=== PATIENT | male | born 1990 | race Caucasian/White ===

== ENCOUNTER 2016-12-10 13:49 | Emergency (ER) | payer OTHER ==
--- NOTE | 2016-12-10 14:03 | EDPHY ---
H & P Stated Complaint: CP started 2 hours ago when arguing with roomate, dull constant pressure Time Seen by Provider: 12/10/16 14:02 - Personal History Current Tetanus/Diphtheria Vaccine: Yes Current Tetanus Diphtheria and Acellular Pertussis (TDAP): Yes - Medical/Surgical History Hx Asthma: No Hx Chronic Respiratory Disease: No Hx Diabetes: No Hx Cardiac Disease: No Hx Renal Disease: No Hx Cirrhosis: No Hx Alcoholism: No Hx HIV/AIDS: No Hx Splenectomy or Spleen Trauma: No Other PMH: pmh:hypothyroidsim, high chol. anxiety. psh: dental - Social History Smoking Status: Never smoked Constitutional: Initial Vital Signs Temperature (C) 36.5 C 12/10/16 13:53 Heart Rate 96 12/10/16 13:53 Respiratory Rate 16 12/10/16 13:53 Blood Pressure 171/93 H 12/10/16 13:53 O2 Sat (%) 97 12/10/16 13:53 O2 Delivery Mode Room Air Allergies/Adverse Reactions: No Known Allergies Allergy (Unverified 12/10/16 13:56) Home Medications: Medication Instructions Recorded Levothyroxine 12/10/16 Medical Decision Making ED Course/Re-evaluation: CHIEF COMPLAINT: Chest pain HISTORY OF PRESENT ILLNESS: This patient is a 26-year-old male with history of anxiety and hypercholesterolemia who presents to the Emergency Department complaining of left-sided chest pain with associated left arm numbness beginning 2.5 hours prior to arrival while arguing with his roommates. He describes his pain as dull and beginning with persistent chest tightness for one hour before he began to experience left arm numbness and that has increased in severity over time. He also reports mild associated dyspnea. He denies any additional complaints; no nausea, diaphoresis, weakness, or recent infections. He returned home from a 5-day backpacking trip two weeks ago and denies any chest pain or shortness of breath during his trip. He denies any recent long- term sedentary periods. REVIEW OF SYSTEMS: A 10 point review of systems was performed and is negative with the exception of the elements mentioned in the history of present illness. PHYSICAL EXAM: HR 96, BP 171/93, O2 Sat 96%, RR 16. Temp noted at 36.5C. General Appearance: Alert, well hydrated, appropriate, and non-toxic appearing. Head: Atraumatic without scalp tenderness or obvious injury Eyes: Pupils equal, round, reactive to light and accommodation, EOMI, no trauma , no injection. Ears: Clear bilaterally, no perforation, normal landmarks Nose: Atraumatic, no rhinorrhea, clear. Throat: There is no erythema or exudates, no lesions, normal tonsils, mucus membranes moist. Neck: Supple, 2+ carotid upstroke, nontender, no lymphadenopathy. Respiratory: No retractions, no distress, no wheezes, and no accessory muscle use. Lungs are clear to auscultation bilaterally. Cardiovascular: Regular rate and rhythm, no murmurs, rubs, or gallops. Bilateral carotid, radial, dorsalis pedis, and posterior tibial pulses intact. Good capillary refill all extremities. Gastrointestinal: Abdomen is soft, nontender, non-distended, no masses, no rebound, no guarding, no peritoneal signs. Musculoskeletal: Normal active ROM of all extremities, atraumatic. Neurological: Alert, appropriate, and interactive. The patient has normal DTRs and non-focal cranial nerves, motor, sensory, and cerebellar exam. Skin: No rashes, good turgor, no nodules on palpation. Past medical history: Hypercholesterolemia (not currently treated), anxiety, hypothyroidism (Levothyroxine). Past surgical history: Dental surgery, unspecified. 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 EKG INTERPRETATION: The 12 lead EKG was interpreted by myself: Sinus rhythm, rate 91; no ischemic changes. See hard copy and/or "tracemaster" electronic copy for interpretation. DIFFERENTIAL DIAGNOSIS: The differential diagnosis for the patient's chest pain included but was not limited to myocardial ischemia, pulmonary embolus, chest wall pain, pleural inflammation, and pulmonary infectious causes. MEDICAL DECISION MAKIN-year-old male who presents with complaint of left anterior chest pain and left arm numbness beginning this afternoon while arguing with roommates. He returned home from a backpacking trip recently and had no chest pain or dyspnea during this exertion. My suspicion for cardiac etiology is therefore quite low, especially given the patient's age. Will proceed with EKG and labs, including D-dimer an Troponin. EKG obtained and is normal (as above). Labs obtained and are unremarkable. D-dimer is negative. Troponin is negative. I discussed EKG and lab results with the patient. I do not feel that further evaluation is warranted at this time. I discussed strict return precautions with the patient who expresses agreement to this. He is given cardiology follow- up and will be discharged home in good condition. - Data Points Laboratory Results: 12/10/16 12/10/16 12/10/16 14:12 14:12 14:12 WBC Pending RBC Pending Hgb Pending Hct Pending MCV Pending MCH Pending MCHC Pending RDW Pending Plt Count Pending MPV Pending Neut % (Auto) Pending Lymph % (Auto) Pending Crawford % (Auto) Pending Eos % (Auto) Pending Baso % (Auto) Pending Nucleat RBC Rel Count Pending Absolute Neuts (auto) Pending Absolute Lymphs (auto) Pending Absolute Monos (auto) Pending Absolute Eos (auto) Pending Absolute Basos (auto) Pending Absolute Nucleated RBC Pending Immature Gran % Pending Immature Gran # Pending D-Dimer Pending Sodium Pending Potassium Pending Chloride Pending Carbon Dioxide Pending Anion Gap Pending BUN Pending Creatinine Pending Estimated GFR Pending Glucose Pending Calcium Pending Troponin I Pending Departure - Departure Disposition: Home, Routine, Self-Care Clinical Impression: Atypical chest pain Condition: Good Instructions: Chest Pain (ED) Additional Instructions: As we discussed, there was no evidence of a cardiac cause for your chest pain or a blood clot when evaluated today in the ED. However, we cannot definitively rule out a cardiac cause for your chest pain. Please follow-up with a staffing branch manager if you would like to be further evaluated. We have referred you to our on-call provider, Dr. Myriam Jimenez. Return to the Emergency Department if you experience worsening chest pain, arm numbness, excessive sweating, nausea, lightheadedness, or for other serious concerns. Referrals: MARIANELA BRYANT [Other] - As per Instructions Myriam Jimenez MD [Medical Doctor] - As per Instructions
--- NOTE | 2016-12-10 14:07 | CPEKG ---
Heart Rate: 91 RR Interval: 659 P-R Interval: 176 QRSD Interval: 82 QT Interval: 328 QTC Interval: 404 P Linwood: 49 QRS Linwood: 33 T Wave Linwood: 19 EKG Severity - NORMAL ECG - EKG Impression: SINUS RHYTHM Electronically Signed By: Tejinder Polk 11-Dec-2016 13:16:46
[2016-12-10 14:37] LABS: % IMMATURE GRANULYOCYTES 0.7 % (0.0-1.1); ABSOLUTE IMMATURE GRANULOCYTES 0.05 10^3/uL (0.00-0.10); ADD DIFF? NO; ADD MORPH? NO; ADD SCAN? NO; ATYPICAL LYMPHOCYTE FLAG 10 (0-99); FRAGMENT RBC FLAG 0 (0-99); HEMATOCRIT 43.9 % (40.0-51.0); HEMOGLOBIN 15.5 g/dL (13.7-17.5); LEFT SHIFT FLG 0 (0-99); LIPEMIA HEMOLYSIS FLAG 90 (0-99); MEAN CELL HEMOGLOBIN 31.8 pg (27.9-34.1); MEAN CELL HEMOGLOBIN CONCENTR. 35.3 g/dL (32.4-36.7); MEAN CELL VOLUME 90.1 fL (81.5-99.8); MEAN PLATELET VOLUME 10.5 fL (8.7-11.7); PLATELET CLUMPS FLAG 0 (0-99); PLATELET COUNT 204 10^3/uL (150-400); RED BLOOD CELL COUNT 4.87 10^6/uL (4.40-6.38); RED CELL DISTRIBUTION WIDTH 11.7 % (11.5-15.2)
[2016-12-10 14:57] LABS: ANION GAP 13 mEq/L (8-16); CALCIUM 9.6 mg/dL (8.5-10.4); CARBON DIOXIDE 20 mEq/l (22-31); CHLORIDE 106 mEq/L (97-110); CREATININE 0.9 mg/dL (0.7-1.3); GLOMERULAR FILTRATION RATE > 60; GLUCOSE 124 mg/dL (70-100); POTASSIUM 3.8 mEq/L (3.5-5.2); SODIUM 139 mEq/L (134-144)
[2016-12-10 15:07] LABS: TROPONIN I < 0.012 ng/mL (0-0.034)
[2016-12-10 16:43] VITALS: RESP 17
[2016-12-10 16:54] VITALS: BP 125/83; PULSE 73; TEMP 97.9; O2SAT 98
== END 2016-12-10 16:54 | disposition home or self-care (01) ==
DX: R07.89 Other chest pain (principal)